=== PATIENT | male | born 1970 | race Caucasian/White ===

== ENCOUNTER 2016-10-10 05:39 | Outpatient (CLI) | payer BC ==
[~2016-10-10] VITALS: Ht 180.3 cm; Wt 93.0 kg
== END 2016-10-10 14:02 ==
LOC: PREOP 05:39
PROVIDERS: ATTEND Surgery
DX: Z01.818 Encounter for other preprocedural examination (principal); K62.5 Hemorrhage of anus and rectum

== ENCOUNTER 2016-10-14 06:50 | Day surgery (SDC) | payer BC ==
[~2016-10-14] VITALS: Ht 180.3 cm; Wt 93.0 kg
--- OUTSIDE RECORDS SUMMARY | 2016-10-14 06:53 | XMS REPORT | Continuity of Care Document ---
Author Author [facility] Organization [facility] Address Unknown Phone Unavailable Support Name Relationship Address Phone ERNESTO LAGUERRE MD Caregiver #[address] [facility] [place] [address] WALTER CARDONA Next Of Kin [address] [place] [id number] Insurance Providers Payer Name Policy Number Subscriber Name Relationship [facility] [id number] Elsie Cardona 18 Self / Same As Patient Advance Directives Directive Response Recorded Date/Time Advance Directives No 10/10/16 1:57pm Resuscitation Status Full Code 10/10/16 1:57pm Problems No problem information available. Medications No known medications. Social History Social History Problem Response Recorded Date/Time Alcohol Use Occasionally Uses 10/10/2016 1:57pm Recreational Drug Use No 10/10/2016 1:57pm Recent Foreign Travel No 10/10/2016 1:57pm Recent Infectious Disease Exposure No 10/10/2016 1:57pm Smoking Status Never a Smoker 10/10/2016 1:57pm Recent Hopitalizations No 10/10/2016 1:57pm Query Response Start Date Stop Date Smoking Status Never a Smoker Hospital Discharge Instructions No hospital discharge instructions. Plan of Care Discharge Date 10/10/16 2:02pm Prescriptions See Medication Section Functional Status No functional status results. Allergies, Adverse Reactions, Alerts No known allergies. Immunizations No immunization records. Vital Signs Acute Vital Signs Vital Response Date/Time Height (Feet) 5 feet 10/10/2016 1:59pm Height (Inches) 11.00 inches 10/10/2016 1:59pm Height (Calculated Centimeters) 180.411608 cm 10/10/2016 1:59pm Weight (Pounds) 205 pounds 10/10/2016 1:59pm Weight (Ounces) 0.0 oz 10/10/2016 1:59pm Weight (Calculated Grams) 25210.44 gm 10/10/2016 1:59pm Weight (Calculated Kilograms) 92.479344 kilograms 10/10/2016 1:59pm Calculated BMI 28.6 10/10/2016 1:59pm Results No known relevant diagnostic tests, laboratory data and/or discharge summary. Procedures No known history of procedures. Encounters Encounter Location Arrival/Admit Date Discharge/Depart Date Attending Provider Departed Clinic [facility] 10/10/16 5:39am 10/10/16 2: 02pm ERNESTO LAGUERRE MD
--- OUTSIDE RECORDS SUMMARY | 2016-10-14 06:54 | XMS REPORT | Continuity of Care Document ---
Author Author [facility] Organization [facility] Address Unknown Phone Unavailable Support Name Relationship Address Phone ERNESTO LAGUERRE MD Caregiver [address] [facility] [place] [address] [address] WALTER CARDONA Next Of Kin [address] [place] [phone] Insurance Providers Payer Name Policy Number Subscriber Name Relationship [facility] [id number] Elsie Cardona 18 Self / Same As [...] 11.00 inches 10/10/2016 1:59pm Height (Calculated Centimeters) 180.254098 cm 10/10/2016 1:59pm Weight (Pounds) 205 pounds 10/10/2016 1:59pm Weight (Ounces) 0.0 oz 10/10/2016 1:59pm Weight (Calculated Grams) 14804.44 gm 10/10/2016 1:59pm Weight (Calculated Kilograms) 92.796843 kilograms 10/10/2016 1:59pm Calculated BMI 28.6 10/10/2016 1:59pm Results No known relevant diagnostic tests, laboratory data and/or discharge summary. Procedures No known history of procedures. Encounters Encounter Location Arrival/Admit Date Discharge/Depart Date Attending Provider Departed Clinic [facility] 10/10/16 5:39am 10/10/16 2: 02pm ERNESTO LAGUERRE MD
[2016-10-14] MEDS ORDERED: NS IV 500 ML 500 ML IV PRN (07:05)
[2016-10-14] MEDS ORDERED: NALOXONE 0.4 MG/ML 1 ML (NARCAN) VIAL IVP PRN (07:15)
[2016-10-14] MEDS ORDERED: FLUMAZENIL (ROMAZICON) 0.1 MG/ML 5 ML VIAL INJ PRN (07:15)
[2016-10-14 07:24] VITALS: BP 131/90
[2016-10-14] MEDS ORDERED: MIDAZOLAM 2 MG/2 ML (VERSED) VIAL ONE ×5 (08:00→08:10)
[2016-10-14] MEDS ORDERED: fentaNYL INJECTION 100 MCG/2 ML AMP ONE ×2 (08:00→08:10)
[2016-10-14] MEDS: MIDAZOLAM 2 MG/2 ML (VERSED) VIAL IVP PRN ×4 (08:08→08:17)
[2016-10-14] MEDS: fentaNYL INJECTION 100 MCG/2 ML AMP IVP PRN ×4 (08:09→08:18)
--- NOTE | 2016-10-14 08:26 | Pre-Op Note & Conscious Sedat ---
Pre-Operative Progress Note H&P Reviewed The H&P was reviewed, patient examined and no changes noted. Date H&P Reviewed: Oct 14, 2016 Time H&P Reviewed: 07:57 Pre-Op Diagnosis: rectal bleeding Conscious Sedation Pre-Proced ASA Class: 1 Airway Mallampati Classification: ([place] appropriate class) I. II. III, IV Lungs Heart ASA score ASA 1: a normal healthy patient ASA 2: a patient with a mild systemic disease (mid diabetes, controlled hypertension, obesity ASA 3: a patient with a severe systemic disease that limits activity (angina , COPD, prior Myocardial infarction) ASA 4: a patient with an incapacitating disease that is a constant threat to life (CHF, renal failure) ASA 5: a moribund patient not expected to survive 24 hrs. (ruptured aneurysm) ASA 6: a declared brain patient whose organs are being harvested. For emergent operations, add the letter E after the classification Grade 1 Sedation Plan: Discussed options with patient/fam Note The patient is an appropriate candidate to undergo the planned procedure, sedation, and anesthesia. The patient immediately re-assessed prior to indication. ERNESTO LAGUERRE MD Oct 14, 2016 8:26 am
--- NOTE | 2016-10-14 08:26 | Progress Note-Post Operative ---
Post-Operative Progess Note Pre-Operative Diagnosis rectal bleeding Post-Operative Diagnosis 8 mm distal rectal polyp Post-Op Procedure Note Date of Procedure: Oct 14, 2016 Name of Procedure: colonoscopy to cecum Snare polypectomy Anesthesia Type sedation Specimen(s) collected sigmoid polyp ERNESTO LAGUERRE MD Oct 14, 2016 8:26 am
--- NOTE | 2016-10-14 08:27 | Discharge Inst-Simple/Standard ---
Discharge Inst-Standard Discharge Medications New, Converted or Re-Newed RX: Other Patient Instructions/Follow Up Plan of Care/Instructions/FU: repeat colonoscopy in 2 years Activity as Tolerated: Yes Discharge Diet: No Restrictions ERNESTO LAGUERRE MD Oct 14, 2016 8:27 am
[2016-10-14 08:50] VITALS: BP 126/89
[2016-10-14 09:20] VITALS: BP 125/94
[2016-10-14 09:30] VITALS: BP 125/94
--- NOTE | 2016-10-14 10:32 | PROCEDURE REPORT ---
PROCEDURE PHYSICIAN: ERNESTO LAGUERRE DATE OF PROCEDURE: 10/14/2016 PROCEDURE: 1. Colonoscopy. 2. Snare polypectomy. SURGEON: Garrett INDICATION FOR THE PROCEDURE: This gentleman came in for colonoscopy to evaluate new onset of fresh rectal bleeding. He was unaware of any other family history. Informed consent was obtained after reviewing the procedure in detail. DESCRIPTION OF PROCEDURE: He was placed in left lateral decubitus position and his vital signs were monitored. Conscious sedation was achieved using Versed and fentanyl. Examination of the perianal area revealed some external hemorrhoids. Digital examination was otherwise unremarkable. The colonoscope was then introduced into the rectum and advanced all the way up to the cecum. The quality of bowel preparation was excellent. The scope was then withdrawn slowly and the mucosa examined in a systematic fashion. FINDINGS: A 9 mm polyp at the distal sigmoid colon that was excised using snare technique. It was then retrieved using the Jaffe net device. He tolerated the procedure well and was taken back to the nursing area in a stable condition. IMPRESSION: Rectal bleeding due to a distal sigmoid polyp. Excised. RECOMMEND: Recommend repeating in 2 years. Job ID: [id number] Dictated Date: 10/14/2016 08:25:16 Bulb Filler Date: 10/14/2016 10:27:02 / joão FONTANA
== END 2016-10-14 09:30 | disposition home or self-care (01) ==
LOC: SDC 06:50
PROVIDERS: ATTEND Surgery
DX: K63.5 Polyp of colon (principal)

== ENCOUNTER 2017-05-12 05:32 | Outpatient (CLI) | payer BC ==
[~2017-05-12] VITALS: Ht 180.3 cm; Wt 93.0 kg
[2017-05-12] MEDS ORDERED: FLUT9.9S NS (13:32)
== END 2017-05-12 13:40 ==
LOC: PREOP 05:32
PROVIDERS: ATTEND Surgery
DX: Z01.818 Encounter for other preprocedural examination (principal); Z86.010 Personal history of colon polyps

== ENCOUNTER 2017-05-19 06:45 | Day surgery (SDC) | payer BC ==
[~2017-05-19] VITALS: Ht 180.3 cm; Wt 93.0 kg
[~2017-05-19 06:45] MED LIST: FLUT9.9S NS
[2017-05-19] MEDS ORDERED: NS IV 500 ML 500 ML IV PRN (06:57)
[2017-05-19] MEDS ORDERED: NS IV 500 ML 500 ML ONE (07:08)
--- NOTE | 2017-05-19 07:14 | History & Physicial ---
JANES DOTSON MEDICAL STUDENT 05/19/17 7:14am: History of Present Illness History of Present Illness Reason for visit/HPI This gentleman came in for flexible sigmoidoscopy to follow-up on a suspicious polyp found in the distal sigmoid colon in September. He denied a recurrence in rectal bleeding. He also denied a change in bowel habits. He reported that his grandmother had cancer in her colon from metastases from a different site. He was unsure of the primary site and reported no other family history of colon cancer, colon polyps, or other familial cancers. Informed consent was obtained after reviewing the procedure. Date of Admission 05/19/2017 Date Seen by Provider: May 19, 2017 I consulted on this patient on 05/19/17 07:09 Attending Physician Kevin Laguerre MD Admitting Physician Александр Aceves MD Consult Allergies and Home Medications Allergies Coded Allergies: No Known Drug Allergies (Unverified , 05/12/17) Home Medications Fluticasone Propionate 9.9 Ml [place].susp, 1 SPRAY NS DAILY, (Reported) Past [id number]-[id number] Hx Patient Social History Marrital Status: Alcohol Use: Denies Use Number of Drinks Today: AA Alcohol Beverage of Choice: Beer Recreational Drug Use: No Smoking Status: Never a Smoker Recent Foreign Travel: No Contact w/other who traveled: No Recent Hopitalizations: No Recent Infectious Disease Expo: No Immunizations Up To Date Tetanus Booster (TDap): Unknown Seasonal Allergies Seasonal Allergies: Yes Surgeries No Respiratory Currently Using CPAP: No Currently Using BIPAP: No Reproductive System Hx Reproductive Disorders: No Sexually Transmitted Disease: No HIV/AIDS: No Gastrointestinal Polyps HEENT Loss of Vision: Denies Hearing Impairment: Denies Blood Transfusions Adverse Reaction to a Blood Tr: No (N/A) Physical Exam Vital Signs Capillary Refill : Respiratory: Lungs Clear, Normal Breath Sounds Cardiovascular: Regular Rate, Rhythm Gastrointestinal: Non Tender Neurologic/Psychiatric: Alert Copy Copies To 1: АЛЕКСАНДР ACEVES MD, XAVIER M MD 05/19/17 8:14am: History of Present Illness History of Present Illness Reason for visit/HPI to undergo surveillance flexible sigmoidoscopy regarding a polyp with high- grade dysplasia Date Seen by Provider: May 19, 2017 Time Seen by Provider: 08:12 Allergies and Home Medications Allergies Coded Allergies: No Known Drug Allergies (Unverified , 05/12/17) Home Medications Fluticasone Propionate 9.9 Ml Baltic.susp, 1 SPRAY NS DAILY, (Reported) Constitutional: no symptoms reported EENTM: no symptoms reported Respiratory: no symptoms reported Cardiovascular: no symptoms reported Gastrointestinal: no symptoms reported Genitourinary: no symptoms reported Musculoskeletal: no symptoms reported Skin: no symptoms reported Psychiatric/Neurological: No Symptoms Reported Physical Exam Vital Signs Vital Sign - Last 12Hours 05/19/17 07:26 Temp 97.3 Pulse 76 Resp 18 B/P (MAP) 137/90 Pulse Ox 99 O2 Delivery Room Air General Appearance: No Apparent Distress HEENT: Normal ENT Inspection Neck: Normal Inspection Respiratory: Lungs Clear Cardiovascular: Normal Peripheral Pulses Gastrointestinal: Non Tender Rectal: Deferred Extremity: Normal Inspection Neurologic/Psychiatric: Alert, Oriented x3 Assessment/Plan Assessment and Plan gentleman with a 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 For follow-up flexible sigmoidoscopy Problems: Copy Copies To 1: АЛЕКСАНДР ACEVES MD, CATHERINE MEDICAL STUDENT May 19, 2017 7:14 am KEVIN LAGUERRE MD May 19, 2017 8:14 am
[2017-05-19 07:26] VITALS: BP 137/90
[2017-05-19] MEDS ORDERED: MIDAZOLAM 2 MG/2 ML (VERSED) VIAL ONE ×3 (07:51→08:14)
[2017-05-19] MEDS ORDERED: fentaNYL INJECTION 100 MCG/2 ML AMP ONE (07:51)
[2017-05-19] MEDS: fentaNYL INJECTION 100 MCG/2 ML AMP IVP PRN ×2 (08:05→08:09)
[2017-05-19] MEDS: MIDAZOLAM 10 MG/2 ML (VERSED) VIAL IVP PRN ×3 (08:06→08:20)
--- NOTE | 2017-05-19 08:10 | Conscious Sedation/ASA ---
Conscious Sedation Pre-Proced Time Reviewed: 08:10 ASA Class: 2 Airway Mallampati Classification: ([place] appropriate class) I. II. III, IV Lungs Heart ASA score ASA 1: a normal healthy patient ASA 2: a patient with a mild systemic disease (mid diabetes, controlled hypertension, obesity ASA 3: a patient with a severe systemic disease that limits activity (angina , COPD, prior Myocardial infarction) ASA 4: a patient with an incapacitating disease that is a constant threat to life (CHF, renal failure) ASA 5: a moribund patient not expected to survive 24 hrs. (ruptured aneurysm) ASA 6: a declared brain patient whose organs are being harvested. For emergent operations, add the letter E after the classification Grade 1 Sedation Plan: Discussed options with patient/fam Note The patient is an appropriate candidate to undergo the planned procedure, sedation, and anesthesia. The patient immediately re-assessed prior to indication. ERNESTO LAGUERRE MD May 19, 2017 8:10 am
[2017-05-19 08:35] VITALS: BP 139/85
--- NOTE | 2017-05-19 08:36 | Endo Procedure Record ---
Endo Procedure Report Date of Procedure May 19, 2017 Surgeon (s) ERNESTO LAGUERRE MD Post Procedure/Op Diagnosis 1 mm polyp at the distal transverse colon Procedure Performed flexible sigmoidoscopy Hot biopsy polypectomy Description of Procedure Anesthesia Type: Conscious Sedation Specimen(s) collected/removed polyp from distal transverse colon Description of the Procedure Indication for procedure: This gentleman was found to have a 9 mm serrated adenoma with high-grade dysplasia, involving the sigmoid colon about 6 months ago. He returned for a follow-up surveillance flexible sigmoidoscopy. Informed consent was obtained after reviewing the procedure in detail. Description of procedure:He was placed in left lateral decubitus position and his vital signs were monitored. Conscious sedation was achieved using Versed and fentanyl. Examination of the perianal area revealed skin tags and some external hemorrhoids. Digital examination was otherwise unremarkable. The colonoscope was then introduced into the rectum and advanced to the mid transverse colon. It was then withdrawn slowly and the mucosa examined in a systematic fashion Findings: 1 mm polyp at the distal transverse colon, that was excised with hot biopsy forceps There was no recurrence around the previously excised polyp He tolerated the procedure well and was taken back to the nursing area in a stable condition by the impression previous serrated adenoma with high-grade dysplasia. No local recurrence. Incidental 1 mm polyp excised from distal transverse colon. Recommend surveillance colonoscopy in one year. Copies To: LYNDSAY ACEVES MD, XAVIER M MD May 19, 2017 8:36 am
--- NOTE | 2017-05-19 08:38 | Discharge Inst-Simple/Standard ---
Discharge Inst-Standard Discharge Medications New, Converted or Re-Newed RX: Other Patient Instructions/Follow Up Plan of Care/Instructions/FU: follow-up colonoscopy in one year Activity as Tolerated: Yes Discharge Diet: No Restrictions ERNESTO LAGUERRE MD May 19, 2017 8:38 am
[2017-05-19 09:05] VITALS: BP 137/92
== END 2017-05-19 09:30 | disposition home or self-care (01) ==
LOC: ENDO 06:45
PROVIDERS: ATTEND Surgery
DX: Z09 Encounter for follow-up examination after completed treatment for conditions other than malignant neoplasm (principal); K63.5 Polyp of colon; K64.4 Residual hemorrhoidal skin tags

== ENCOUNTER 2018-05-11 05:34 | Outpatient (CLI) | payer BC ==
[~2018-05-11] VITALS: Ht 180.3 cm; Wt 86.2 kg
== END 2018-05-11 09:56 | disposition home or self-care (01) ==
LOC: PREOP 05:34
PROVIDERS: ATTEND Surgery
DX: Z01.818 Encounter for other preprocedural examination (principal)

== ENCOUNTER 2020-05-30 05:38 | Outpatient (CLI) | payer BC ==
[~2020-05-30] VITALS: Ht 177.8 cm; Wt 90.9 kg
== END 2020-05-30 13:15 ==
LOC: PREOP 05:38
PROVIDERS: ATTEND Surgery
DX: Z01.818 Encounter for other preprocedural examination (principal)

== ENCOUNTER 2020-06-05 07:37 | Day surgery (SDC) | payer BC ==
[~2020-06-05] VITALS: Ht 177.8 cm; Wt 90.9 kg
[2020-06-05] VITALS (7 sets, daily range): BP systolic 114–150; BP diastolic 61–98
[2020-06-05] MEDS ORDERED: LACTATED RINGERS 1,000 ML IV ONE (07:57)
[2020-06-05] MEDS ORDERED: PROPOFOL INJECTION 50 ML IV ONE (08:03)
[2020-06-05] MEDS ORDERED: MIDAZOLAM 2 MG/2 ML (VERSED) VIAL ONE (08:04)
--- NOTE | 2020-06-05 08:08 | Progress Note-Pre Operative ---
Pre-Operative Progress Note H&P Reviewed The H&P was reviewed, patient examined and no changes noted. Time Seen by Provider: 07:59 Date H&P Reviewed: Jun 05, 2020 Time H&P Reviewed: 08:00 Pre-Operative Diagnosis: Hx of Colon Polyps MABLE ELIAS DO Jun 05, 2020 08:08
[2020-06-05] MEDS ORDERED: LACTATED RINGERS 1,000 ML IV PRN (08:15)
--- NOTE | 2020-06-05 09:28 | Progress Note-Post Operative ---
Post-Operative Progess Note Surgeon (s)/Record Pressman (s) Surgeon MABLE ELIAS DO Record Pressman: ZORAIDA Diaz Pre-Operative Diagnosis Hx of Colon Polyps Post-Operative Diagnosis Colon Polyp internal hemorrhoids Procedure & Operative Findings Date of Procedure 06/05/20 Procedure Performed/Findings Colon with hot bx Anesthesia Type IV sedation by BELL PERSON Estimated Blood Loss Estimated blood loss (mL): scant Specimens/Packing Specimens Removed Descending colon polyp MABLE ELIAS DO Jun 05, 2020 09:28
--- NOTE | 2020-06-05 09:29 | Endoscopy Discharge Instruct ---
Endo Procedure/Findings Findings 1.: Polyp 2.: Internal Hemorrhoids Discharge Instructions - Activity: You might feel a little sleepy until tomorrow. This is due to the medicine you received to relax you. Until tomorrow, you should: NOT drive a car, operate machinery or power tools. NOT drink any alcoholic beverages. NOT make any important decisions or sign importortant papers. Do not return to work until tomorrow, unless otherwise instructed. Resume previous activities tomorrow. Diet: Start by taking liquids. If you tolerate liquids, advance to solid food. 1.: Colonscopy in 5 years Notify Physician - If you experience excessive bleeding, unusual abdominal pain, fever, or chest pain, contact your doctor immediately. MABLE ELIAS DO Jun 05, 2020 09:29
--- NOTE | 2020-06-05 12:37 | Anesthesia-General Post-Op ---
MAC Patient Condition Mental Status/LOC: Same as Preop Cardiovascular: Satisfactory Nausea/Vomiting: Absent Respiratory: Satisfactory Pain: Controlled Complications: Absent Post Op Complications Complications None Follow Up Care/Instructions Patient Instructions None needed. Anesthesiology Discharge Order Discharge Order Patient is doing well, no complaints, stable vital signs, no apparent adverse anesthesia problems. No complications reported per nursing. DANIE CORREA CRNA Jun 05, 2020 12:37
--- NOTE | 2020-06-06 05:34 | OPERATIVE REPORT ---
DATE OF SERVICE: 06/05/2020 PREOPERATIVE DIAGNOSIS: History of colon polyps. POSTOPERATIVE DIAGNOSES: Colon polyp, internal hemorrhoids. PROCEDURE: Colonoscopy with hot biopsy. SURGEON: Clint Lawson DO ULTIMATE HOOPS REFEREE: Pat Aviles MS3 SPECIMEN: Biopsy from the polyp from the descending colon. BLOOD LOSS: Scant. FLUIDS: Per anesthesia. POSTOPERATIVE CONDITION: Stable. INDICATION FOR PROCEDURE: The patient is a 50-year-old male with a history of colon polyps, needed a surveillance colonoscopy. FINDINGS: The patient had a descending colon polyp and some very small internal hemorrhoids. PROCEDURE NOTE: After informed consent was obtained, the patient was brought to the endoscopy suite, placed in bed in left lateral decubitus position. He was administered IV sedation by the MANAGER SQL who then monitored his vitals the entire time, heart rate, blood pressure and pulse ox. Inserted the scope, pushed all the way into about 140 cm, able to get to the cecum, took a picture of appendiceal orifice and then actually able to get into terminal ileum, took a picture and then slowly withdrew the scope insufflating to look circumferentially at the gutierrez looking the cecum, up the ascending colon to the hepatic flexure, then down the transverse colon and the splenic flexure, into the descending colon. In the descending colon, saw small polyp, took a picture and then did a hot biopsy, removed this in one bite. Continued down in the sigmoid and finally into the rectum, retroflexed in rectal vault, saw some minimal internal hemorrhoids, took a picture and then removed the scope. The patient tolerated the procedure. He was recovered in endoscopy suite. Job ID: [id number] DocumentID: [id number] Dictated Date: 06/05/2020 18:46:34 Administrative Project Coordinator Date: 06/06/2020 05:32:54 Dictated By: CLINT LAWSON DO
== END 2020-06-05 09:40 | disposition home or self-care (01) ==
LOC: SDC 07:37 → ENDO 09:40
PROVIDERS: ATTEND Surgery
DX: Z09 Encounter for follow-up examination after completed treatment for conditions other than malignant neoplasm (principal); D12.4 Benign neoplasm of descending colon; K64.8 Other hemorrhoids; Z86.010 Personal history of colon polyps; Z80.0 Family history of malignant neoplasm of digestive organs
CPT/HCPCS: 88305

== ENCOUNTER → 2023-07-04 | Outpatient (CLI) | payer BC ==
--- NOTE | 2023-07-04 16:18 | Diagnostic Imaging Report ---
PROCEDURE: US carotid duplex, bilateral. TECHNIQUE: Multiple real-time grayscale images were obtained over the carotid arteries in various projections, bilaterally. Additional spectral analysis and color Doppler duplex images were also obtained. INDICATION: Dizziness. Hypertension. COMPARISON: None. FINDINGS: Right carotid circulation: The right common carotid artery is normal in course and caliber. No hemodynamically significant stenosis is present. Left carotid circulation: The left common carotid artery is normal in course and caliber. No hemodynamically significant stenosis is present. Flow in the bilateral vertebral arteries is antegrade. IMPRESSION: 1. No sonographic evidence of hemodynamically significant stenosis based on flow velocity criteria. Parameters based on the consensus panel Navas-Scale and Doppler ultrasound criteria published July 2003, Radiology, Volume 229. DOPPLER (peak systolic velocity M/S Right Left CCA 0.96 1.07 ICA Proximal 0.65 0.72 ICA Mid 0.72 0.74 ICA Distal 0.81 0.64 RATIO 0.85 0.69 ECA 0.87 0.74 VERT 0.47 0.54 Dictated by: Dictated on workstation # [id number]
== END ==
LOC: RAD 09:41
PROVIDERS: ATTEND Family Medicine
DX: R42 Dizziness and giddiness (principal); I10 Essential (primary) hypertension; E78.5 Hyperlipidemia, unspecified
CPT/HCPCS: 93880